=== PATIENT | male | born 1960 | race Caucasian/White ===

== ENCOUNTER 2016-04-19 10:53 | Inpatient (IN) | payer BC ==
[~2016-04-19] VITALS: Ht 177.8 cm; Wt 127.3 kg
--- NOTE | ~2016-04-19 | HEMODYNAMI ---
PATIENT:KEN BARRERA MEDICAL RECORD: [id number] : 64 [id number] ADMISSION DATE: 04/19/16 Generatedon:04/20/201612:17 Patient name: KEN BARRERA Patient #: [id number] SSN: D OB: 1960 Date of study: 04/20/2016 Page: Of Hemodynamic Procedure Report Patient Data Patient Demographics Procedure consent was obtained First Name: KEN Gender: Male Last Name: BRUCE : 1960 Middle Initial: W Age: 55 year(s) Patient #: [id number] Race: Additional ID: [id number] Contact details [address]: [address] [place] [address] State: [place] City: [place] Zip code: [address] Past Medical History Performed procedures and imaging results Date Procedure Procedure Results Comments 04/20/2016 No ACC stress or imaging studies were performed Allergies: No known allergies Admission Admission Data Admission Date: 04/19/2016 Admission Time: 10:53 Admit Source: Other Insurance Payor: Private Room #: D.2119 health insurance Height (in.): 70 BSA: 2.41 (m2) Height (cm.): 177.8 BMI: 40.18 (kg/m2) Weight (lbs.): 280 Weight (kg.): 127.01 Lab Results Lab Result Date: 04/20/2016 Lab Result Time: 0:00 Biochemistry Name Units Result Min Max Creatinine mg/dl 0.9 --(-*--)-- 0.6 1.3 CBC Name Units Result Min Max Hemoglobin g/dl 16.2 --(--*-)-- 13.5 17.5 Procedure Procedure Types Cath Procedure Diagnostic Procedure [facility] w/Coronaries Procedure Description Procedure Date Procedure Date: 04/20/2016 Procedure Start Time: 12:08 Procedure End Time: 12:16 Procedure Staff Name Function Delta Souza MD Performing Physician Pete Castrejon RN Nurse Ruth Counts RT Monitor Edgard Soares RT Batch Room Technician Lobito White RT Scrub Procedure Data Cath Procedure Fluoroscopy Diagnostic fluoroscopy Total fluoroscopy Time: 0.8 time: 0.8 min min Diagnostic fluoroscopy Total fluoroscopy dose: 451 dose: 451 mGy mGy Contrast Material Contrast Material Type Amount (ml) Isovue 300 58 Entry Location Entry Primary Successful Side Size Upsize Upsize Entry Closure Succes sful Closure Location (Fr) 1 (Fr) 2 (Fr) Remarks Device Remarks Femoral Right 5 Fr Vascade artery Closure System Estimated blood loss: 5 ml Diagnostic catheters Device Type Used For End Catheter Placement Cordis 5Fr Pigtail LV Angiography Catheter (MP) Cordis 5Fr JL 4.0 Left Coronary Catheter (MP) Angiography Cordis 5Fr 3DRC Catheter Right Coronary (MP) Angiography Procedure Complications No complications Procedure Medications Medication Administration Route Dosage Oxygen NC 2 l/min Heparin Drip I.V. drip (80986jblcb/250 D5W) Lidocaine 2% added to field 20 Heparin Flush Bag added to field 2 bags (1000units/500ml NS) 0.9% NaCl I.V. 100 ml/hr Versed I.V. 1 mg Fentanyl I.V. 50 mcg Versed I.V. 1 mg Fentanyl I.V. 50 mcg Hemodynamics Rest BSA: 2.41 (m2) HGB: 16.2 (g/dl) O2 Consumption: Estimated: 295.01 (ml/min) O2 Co nsumption indexed: Estimated:122.41 (ml/min/m) Heart Rate: 79 (bpm) Snapshots Pre Cath Intra NCS Post Cath Vital Signs Time Heart Resp SPO2 NIBP (mmHg) Rhythm Pain Sedation Rate (ipm) (%) Status Level (bpm) 11:57:59 79 21 98 126/98(115) NSR 0 (11) 10(A) , No pain 12:02:09 80 17 98 114/83(101) NSR 0 (11) 10(A) , No pain 12:06:15 82 17 94 126/82(110) NSR 0 (11) 10(A) , No pain 12:10:23 77 16 97 129/86(102) NSR 0 (11) 9(A) , No pain 12:14:33 70 20 96 118/92(106) NSR 0 (11) 9(A) , No pain 12:15:51 73 19 95 126/87(109) NSR 0 (11) 10(A) , No pain Medications Time Medication Route Dose Verified Delivered Reason Notes Eff ectiveness by by 11:55:13 Oxygen NC 2 Delta Buffie used for l/min Libby Castrejon RN procedure 11:58:32 Heparin Drip I.V. turned Deltahorace Laureanoie Per (92808didfw/250 drip off at Libby Castrejon RN physician D5W) 1148 11:58:43 Lidocaine 2% added 20ml Delta Delta for local to vial Libby Souza MD anesthetic field 11:58:48 Heparin Flush added 2 bags Delta Delta used for Bag to Libby Souza MD procedure (1000units/500ml field NS) 11:58:56 0.9% NaCl I.V. 100 Delta Buffie Per ml/hr Libby Castrejon RN physician 12:07:38 Versed I.V. 1 mg Delta Laureanoie for Libby Castrejon RN sedation 12:07:43 Fentanyl I.V. 50 mcg Delta Freeman for Libby Castrejon RN sedation 12:10:33 Versed I.V. 1 mg Delta Buffie for Libby Castrejon RN sedation 12:10:36 Fentanyl I.V. 50 mcg Delta Freeman for Libby Castrejon RN sedation Procedure Log Time Note 11:40:26 Edgard Soares RT(R) sent for patient. Start room use. 11:40:27 Time tracking: Regular hours 11:40:31 Plan of Care:Hemodynamics will remain stable., Cardiac rhythm will remain stable., Comfort level will be maintained., Respiratory function will remain adequate., Patient/ family verbilizes understanding of procedure., Procedure tolerated without complication., Recovers from procedure without complications.. 11:41:31 ACC Patient presents with Stable Angina CCS Anginal Class 2--Slight limitation of ordinary activity. 11:42:38 Admit Source: Other 11:42:41 Insurance Payor : Private health insurance 11:45:25 Patient allergic to No known allergies 11:46:17 Lab Result : Hemoglobin 16.2 g/dl 11:46:17 Lab Result : Creatinine 0.9 mg/dl 11:46:32 Diagnostic Cath Status : Elective 11:49:10 Patient received from PCU to CCL 1 Alert and oriented. Tansferred to table in Supine position. 11:49:11 Warm blankets applied, and sunil hugger turned on for patient comfort. 11:49:12 Correct patient and procedure confirmed by team. 11:49:13 Signed procedure consent form obtained from patient. 11:49:14 ECG and BP/O2 sat monitors applied to patient. 11:49:14 Full Disclosure recording started 11:52:01 Use device set Femoral Dx 11:52:02 Acist Syringe opened to sterile field. 11:52:03 Bag Decanter opened to sterile field. 11:52:03 Cardinal Cath Pack opened to sterile field. 11:52:04 Terumo 5Fr [place] Sheath opened to sterile field. 11:52:04 St Maycol 260cm J .035 wire opened to sterile field. 11:52:05 Acist Hand Control opened to sterile field. 11:52:06 Acist Manifold opened to sterile field. 11:52:06 Cordis Infinity 5Fr Multipack catheter opened to sterile field. 11:52:07 Tegaderm 4 x 4 opened to sterile field. 11:52:07 IV Extension Set opened to sterile field. 11:52:29 H&P Date Dictated: 04/19/2016 Within 30 days and on chart.. 11:52:30 Pre-procedure instructions explained to patient. 11:52:30 Pre-op teaching completed and patient verbalized understanding. 11:52:31 Family in waiting room. 11:52:34 Patient NPO since Midnight. 11:52:37 Is the patient allergic to Iodine/contrast media? No. 11:52:40 Is patient on blood thinner?No 11:52:41 Patient diabetic? No. 11:52:48 Previous problem with sedation/anesthesia? No ? 11:52:50 Snore? No 11:52:51 Sleep apnea? No 11:52:52 Deviated septum? No 11:52:52 Opens mouth fully? Yes 11:52:53 Sticks out tongue? Yes 11:52:55 Airway obstruction? No ? 11:52:57 Dentures? No ? 11:52:59 Pre procedure: right dorsailis pedis pulse 2+ Normal; easily identifiable; not easily obliterated 11:53:03 Patient pain scale 0/10 ?. 11:53:11 IV patent on arrival in left forearm with 0.9% NaCl at [facility]. 11:55:13 Oxygen 2 l/min NC was given by Pete Castrejon RN; used for procedure; 11:56:50 Lab results completed and on chart. 11:56:55 Right groin area was prepped with chlora-prep and draped in sterile fashion 11:56:59 Vital chart was started 11:57:11 Rhythm: atrial fibrillation 11:57:18 Alarms reviewed by R. N. 11:57:18 Sharps counted by scrub and verified by R.N. 11:58:32 Heparin Drip (75375mjyfe/250 D5W) turned off at 1148 I.V. drip was given by Pete Castrejon RN; Per physician; 11:58:43 Lidocaine 2% 20ml vial added to field was given by Delta Souza MD; for local anesthetic; 11:58:45 Baseline sample Acquired. 11:58:48 Heparin Flush Bag (1000units/500ml NS) 2 bags added to field was given by Delta Souza MD; used for procedure; 11:58:56 0.9% NaCl 100 ml/hr I.V. was given by Pete Castrejon RN; Per physician; 11:59:37 Patient Height : 177.8 cm 11:59:41 Patient Weight : 127.01 kg 12:00:24 Physician paged 12:03:44 Zero performed for pressure channel P1 12:06:33 Final Timeout: patient, procedure, and site verified with staff and physician. All members of the team are in agreement. 12:06:35 Right groin site verified by team. 12:06:37 Physical assessment completed. ASA score P 2 - A patient with mild systemic disease as per Delta Souza MD. 12:06:40 Sedation plan: IV Moderate Sedation Versed, Fentanyl 12:07:38 Versed 1 mg I.V. was given by Pete Castrejon RN; for sedation; 12:07:43 Fentanyl 50 mcg I.V. was given by Pete Castrejon RN; for sedation; 12:08:26 Procedure started. 12:08:51 Local anesthetic to right femoral artery with Lidocaine 2% by Delta Souza MD.INITIAL ACCESS ONLY 12:09:20 A 5 Fr sheath was inserted into the Right Femoral artery 12:09:42 A CordTheReadingRoom 5Fr Pigtail Catheter (MP) was advanced over the wire and used for LV Angiography. 12:10:19 LV gram done using BROWN 12:10:23 EF : 30 % 12:10:33 Versed 1 mg I.V. was given by Pete Castrejon RN; for sedation; 12::36 Fentanyl 50 mcg I.V. was given by Pete Castrejon RN; for sedation; 12:10:36 Injector settings: Ml/sec: 10, Volume: 20, 12:10:39 Catheter removed. 12:10:53 A Cordis 5Fr JL 4.0 Catheter (MP) was advanced over the wire and used for Left Coronary Angiography. 12:11:28 Catheter removed. 12:11:50 A Cordis 5Fr 3DRC Catheter (MP) was advanced over the wire and used for Right Coronary Angiography. 12:12:34 Catheter removed. 12:12:44 Vascade 5Fr Closure Device opened to sterile field. 12:13:24 Sheath removed intact; hemostasis achieved with Vascade Closure System to the Right Femoral artery. 12:13:26 Procedure ended.(Physican Out) 12:14:45 Fluoroscopy time 00.80 minutes. 12:14:48 Fluoroscopy dose: 451 mGy 12:14:48 Flurop Dose total: 451 12:14:53 Contrast amount:Isovue 300 58ml. 12:14:54 Sharps counted by scrub and verified by R.N. 12:14:57 Insertion/operative site no bleeding no hematoma. 12:15:02 Post-op/insertion site Right Femoral artery dressed using a 4 x 4 and Tegaderm. 12:15:05 Post right femoral artery:stable, clean and dry 12:15:07 Post Procedure Pulses reassessed and unchanged 12:15:13 Post-procedure physical assessment completed. ASA score P 2 - A patient with mild systemic disease as per Delta Souza MD. 12:15:21 Post procedure rhythm: unchanged. 12:15:23 Estimated blood loss: 5 ml 12:15:24 Post procedure instruction explained to patient.Patient verbalizes understanding. 12:15:24 Patient needs reinforcement of post procedure teaching. 12:15:45 Procedure and supply charges have been captured, reviewed, submitted and are correct. 12:15:48 Procedure Complication : No complications 12:15:51 See physician's report for complete and final results. 12:16:19 Vital chart was stopped 12:16:22 Report given to PCU. 12:16:26 Patient transfered to PCU with Bed. 12:16:34 Procedure ended. 12:16:34 Full Disclosure recording stopped 12:16:43 End room use (Document Last) Device Usage Item Name Manufacture Quantity Catalog Number Hospital Part Current Minimal Lot# / Charge Number Stock Stock Serial# Code Acist Acist 1 78429 [id number] 231401 889362 20 Syringe Medical Systems Inc Bag Microtek 1 2002S 126436 89443 378598 5 Decanter Medical Inc. Cardinal Cardinal 1 [id number] 089923 42112 014591 5 Cath Pack Health Terumo Terumo 1 IRY755 960755 844257 340851 40 5Fr [place] Sheath [address] Maycol St Maycol 1 111138 097176 416156 033975 30 260cm J .035 wire Acist Acist 1 05349 864677 714260 808072 5 Hand Medical Control Systems Inc Acist Acist 1 86625 950046 755951 644274 5 Manifold Medical Systems Inc Cordis Cardinal 1 US2199 468774 28944 975068 30 Infinity Health 5Fr Multipack catheter Tegaderm 3M 1 1626W 318168 504094 264548 5 4 x 4 IV Hospira 1 61754-00 280239 25726 172384 5 Extension Set Cordis Cardinal 1 932166 5 5Fr Health Pigtail Catheter (MP) Cordis Cardinal 1 [id number] 5 5Fr JL Health 4.0 Catheter (MP) Cordis Cardinal 1 627873 5 5Fr [facility] Health Catheter (MP) Vascade Cardiva 1 [id number] 659995 24635 103160 10 5Fr Medical, Closure Inc. Device Signature Audit [place] Stage Time Signature Unsigned Intra-Procedure 04/20/2016 Ruth 12:17:03 PM Counts RT(R) Signatures Monitor : Ruth Signature : Counts RT Date : Time : [id number] [place] [address]
--- NOTE | 2016-04-19 11:44 | NUR ---
PT ARRIVED TO UNIT VIA WHEELCHAIR, ACCOMPANIED BY SPOUSE AND HOSPITAL STAFF. PT ORIENTED TO ROOM AND CALL LIGHT, PLACED ON 1.5L OF O2 PER DOCTOR'S ORDER. WILL DO ASSESSMENT AND START PLAN OF CARE.
[2016-04-19 11:57] LABS: APPEARANCE CLEAR (CLEAR); BILIRUBIN NEGATIVE (NEGATIVE); COLOR DK YELLOW (YELLOW); GLUCOSE NEGATIVE (NEGATIVE); KETONE NEGATIVE (NEGATIVE); LEUKOCYTE ESTERASE NEGATIVE (NEGATIVE); NITRITE NEGATIVE (NEGATIVE); PROTEIN NEGATIVE (NEGATIVE); SPECIFIC GRAVITY 1.015 (1.005-1.020); UROBILINOGEN NORMAL (NORMAL)
[2016-04-19 11:58] LABS: BASOPHILS 0.5 % (0.0-2.0); EOSINOPHILS 2.4 % (0-7); HEMATOCRIT 49.2 % (42.0-54.0); HEMOGLOBIN 16.2 g/dL (13.5-17.5); IMMATURE GRANULOCYTES 0.5 % (0-5); LYMPHOCYTES 16.8 % (15-50); MCH 28.2 pg (26.0-34.0); MCHC 32.9 g/dL (31.0-37.0); MCV 85.6 fL (80.0-100.0); MONOCYTES 9.7 % (2-11); NEUTROPHILS 70.1 % (40-80); PLATELET COUNT 241 10x3/uL (130-400); RBC 5.75 10x6/uL (4.20-6.10); RDW 13.2 % (11.5-14.5); WBC 10.9 10x3/uL (4.8-10.8)
[2016-04-19 12:28] LABS: ALKALINE PHOSPHATASE 103 U/L (46-116); ALT (SGPT) 52 U/L (10-68); BILIRUBIN - TOTAL 0.72 mg/dL (0.2-1.3); CALC OSMOLALITY 281 mosm/kg (275-300); CALCIUM 10.2 mg/dL (8.5-10.1); CARBON DIOXIDE 30.1 mmol/L (21.0-32.0); CHLORIDE - SERUM 103 mmol/L (98-107); CREATININE - SERUM 0.9 mg/dL (0.6-1.3); GLUCOSE 105 mg/dL (74-106); POTASSIUM - SERUM 5.1 mmol/L (3.5-5.1); PROTEIN - SERUM 7.9 g/dL (6.4-8.2); SODIUM 141 mmol/L (136-145); T4 THYROXINE 8.2 ug/dL (4.7-13.3); THYROID STIMULATING HORMONE 4.08 uIU/mL (0.36-3.74); UREA NITROGEN 16 mg/dL (7-18); eGFR NON AFRICAN AMERICAN > 90 mL/min (90-120)
[2016-04-19 13:26] VITALS: BP 167/114; Ht 177.8 cm; Wt 127.3 kg
--- NOTE | 2016-04-19 13:40 | NUR ---
22G IV TO RIGHT FOREARM AND LEFT FOREARM WITH ONE ATTEMPT EACH. COVERED WITH OPSITE. TOLERATED WELL
--- NOTE | 2016-04-19 14:06 | NUR ---
CARDIZEM DRIP STARTED TO LEFT FOREARM AT THIS TIME AT 10MG/HR. PT IN BED, DENIES ANY NEEDS AT THIS TIME. CALL LIGHT IN REACH, NAD NOTED, WILL CONTINUE TO MONITOR.
--- NOTE | 2016-04-19 14:34 | NUR ---
SCD'S ON BILATERAL LE
--- NOTE | 2016-04-19 14:35 | NUR ---
CALLED LAB AND INFORMED THEM THAT I NEED A PTT ON PT STAT. THEY STATED THAT THEY WOULD COME DRAW IT.
[2016-04-19 15:44] VITALS: BP 155/94
--- NOTE | 2016-04-19 16:21 | NUR ---
ADMINSITERED 5000 UNITS OF HEPARIN ONE TIME DOSE. AND HEPARIN DRIP STATED AT 13ML/HR. VERIFIED BY JIM MILLER RN. PT DENIES ANY NEEDS AT THIS TIME. CALL LIGHT IN REACH, NAD NOTED, WILL CONTINUE TO MONITOR.
[2016-04-19] MEDS ORDERED: FISH OIL 1,0001 CA1 PO (16:28)
[2016-04-19] MEDS ORDERED: CO Q-1030 MG PO (16:29)
[2016-04-19] MEDS ORDERED: VITAMIN C1000 MG PO (16:29)
[2016-04-19 20:33] VITALS: BP 113/73
[2016-04-20 00:32] VITALS: BP 120/66
[2016-04-20 04:42] VITALS: BP 128/76
--- NOTE | 2016-04-20 06:13 | NUR ---
PT ASSESSMENT COMPLETED AND PT LAYINGIN BED CARDIZEM INFUSING AND HR 65 BP 113/73 DR JOSE DENISE AND RECIVED ORDER TO DC CARDIZEM DRIP DRIP [place] [address] UNITIS/HR AT THIS TIME UNTIL PTT REDRAWN WILL MONITOR PT
--- NOTE | 2016-04-20 06:14 | NUR ---
PT REVIEWED AND HEPRIN DRIP ASSESSED BOLUS 3000UNITS AND INCREASE DRIP BY 3000 UNITS PER HEPRIN PROTOCOL.
[2016-04-20 06:57] LABS: BASOPHILS 0.5 % (0.0-2.0); EOSINOPHILS 2.2 % (0-7); HEMATOCRIT 46.6 % (42.0-54.0); HEMOGLOBIN 14.9 g/dL (13.5-17.5); IMMATURE GRANULOCYTES 0.4 % (0-5); LYMPHOCYTES 22.2 % (15-50); MCH 27.9 pg (26.0-34.0); MCV 87.1 fL (80.0-100.0); MEAN PLATELET VOLUME 10.1 fL (7.4-10.4); MONOCYTES 8.3 % (2-11); NEUTROPHILS 66.4 % (40-80); PLATELET COUNT 222 10x3/uL (130-400); RBC 5.35 10x6/uL (4.20-6.10); RDW 13.4 % (11.5-14.5); WBC 11.4 10x3/uL (4.8-10.8)
[2016-04-20 07:21] LABS: ANION GAP 8.3 mmol/L (8-16); CALCIUM 8.9 mg/dL (8.5-10.1); CARBON DIOXIDE 30.8 mmol/L (21.0-32.0); POTASSIUM - SERUM 5.1 mmol/L (3.5-5.1)
[2016-04-20 07:22] LABS: CREATININE - SERUM 1.2 mg/dL (0.6-1.3)
[2016-04-20 08:00] VITALS: BP 111/76
--- NOTE | 2016-04-20 09:01 | NUR ---
CONSENTS SIGNED FOR [facility]. HEPRIN GTT INFUSING. AT BS. WILL CONT. PLAN OF CARE.
--- NOTE | 2016-04-20 11:50 | NUR ---
PRE-OPS GIVEN. TO FISH CONSERVATIONIST BY BED.
[2016-04-20 12:00] VITALS: BP 115/76
--- NOTE | 2016-04-20 12:33 | NUR ---
BACK FROM [facility]. VS WNL. RIGHT GROIN STABLE WITHOUT BLEEDING OR HEMATOMA NOTED. WILL MONITOR.
[2016-04-20] MEDS ORDERED: BETAPACE 120 M120 MG PO (14:08)
[2016-04-20] MEDS ORDERED: XARELTO20 MG PO (14:09)
[2016-04-20] MEDS ORDERED: LISINOPRIL5 MG PO (14:10)
--- NOTE | 2016-04-20 14:37 | NUR ---
BED REST UP. GROIN STABLE. IV AND TELEMETRY DCD FOR DC.
--- NOTE | 2016-04-20 14:45 | NUR ---
Patient Name: KEN BARRERA Admission Status: Elective Accout number: [id number] Admission Date: 04-19-2016 : 1960 Admission Diagnosis:ESSENTIAL (PRIMARY) HYPERTENSION Attending: MANUELA Current LOS: 1 Anticipated DC Date: 04-20-2016 Planned Disposition: Home Primary Insurance: BLUE CROSS OUT OF STATE Discharge Planning Comments: * Is the patient Alert and Oriented? Yes 0 * How many steps to enter\exit or inside your home? 6 0 * PCP DR. VERDE 0 * Pharmacy [facility] 0 * Preadmission Environment Home with Family 0 * ADLs Independent 0 * Equipment None 0 * Other Equipment NO MEDICAL EQUIPMENT PROVIDER PREFERENCE 0 * List name and contact numbers for known caregivers / representatives who currently or will assist patient after discharge: SHADY BARRERA, SPOUSE, 0 * Community resources currently utilized None 0 * Please name any agencies selected above. NONE 0 * Additional services required to return to the preadmission environment? No 0 * Can the patient safely return to the preadmission environment? Yes 0 * Has this patient been hospitalized within the prior 30 days at any hospital? No 0 CM MET WITH PT AND SPOUSE IN ROOM TO DISCUSS DISCHARGE PLANNING AND NEEDS. PT REPORTS LIVING WITH SPOUSE. PT HAS NO MEDICAL EQUIPMENT AND NO OUTSIDE SERVICES ASSISTING IN THE HOME. CM DISCUSSED AVAILABILITY OF HOME HEALTH, REHAB SERVICES AND MEDICAL EQUIPMENT. PT DENIES DISCHARGE NEEDS, REPORTS HIS SPOUSE WILL TRASPORT HIM HOME AT DISCHARGE. [employer] Representatives: Harlan Ma
--- NOTE | 2016-04-20 15:35 | NUR ---
IV AND TELEMETRY DCD. DC PLANS GIVEN. UNDERSTANDING VOICED. ESCORTED TO CAR BY W/C.
--- NOTE | 2016-04-21 16:23 | CN ---
PATIENT NAME:KEN BARRERA MEDICAL RECORD: [id number] : 64 LOCATION:D. D.2119 ADMIT DATE: 04/19/16 ACCOUNT: [id number] CONSULTING PHYSICIAN: TE GARCIA MD REFERRING PHYSICIAN: JAZMIN VERDE MD DATE OF CONSULTATION: 04/19/2016 Cardiology Consultation DIAGNOSES: 1. Atrial fibrillation. 2. Chest pain compatible with angina. 3. Shortness of breath, dyspnea on exertion. 4. Family history of coronary artery disease. 5. Hyperlipidemia. HISTORY OF PRESENT ILLNESS: This is a gentleman who presents with shortness of breath and some chest discomfort, found to be in atrial fibrillation with rapid ventricular response, was given IV Cardizem as well as p.o. sotalol. He is now still in atrial fibrillation. Heart rate in 60s. He is not having any further chest pain or chest discomfort, shortness of breath has improved. He does not have a cardiac history ____ family history of coronary artery disease. His troponin is normal. PHYSICAL EXAMINATION: GENERAL APPEARANCE: Well-nourished, well-developed, appears stated age. Level of distress, comfortable. PSYCHIATRIC: Mental status, alert, normal affect. Orientation, oriented to time, place and person. EYES: Lids and conjunctiva, noninjected. No discharge, no pallor. ENT: Lips, teeth, gums, normal dentition. Oropharynx, no cyanosis, no pallor. NECK: Carotid arteries, bilateral normal upstroke, no bruits, no thrills. JUGULAR VEINS: No jugular venous pressure or distention. CERVICAL LYMPH NODES: Nontender, nonenlarged. THYROID: Not enlarged. Nontender. No nodules. LUNGS: Respiratory effort, unlabored. CHEST: Normal curvature. No thoracic deformity. No chest wall tenderness. Percussion, resonant. Auscultation, clear. No wheezes, no rales, no rhonchi. CARDIOVASCULAR: Precordial exam, nondisplaced. No heaves or pericardial thrills. Rate and rhythm, regular. Heart sounds, normal S1, normal S2. No S3, no gallop, no rub. Systolic murmur, not heard. Diastolic murmur, not heard. EXTREMITIES: No cyanosis, no edema. Peripheral pulses, full and equal in all extremities, except as noted. No bruits appreciated. ABDOMEN: Soft, nondistended. Normal aorta. No bruit. Nontender. No masses. Liver, nontender, no hepatomegaly. Spleen, nontender, no splenomegaly. MUSCULOSKELETAL: No joint tenderness. No joint swelling. No erythema. NEUROLOGICAL: Normal gait, normal strength, normal tone. SKIN: Warm and dry. REVIEW OF SYSTEMS: The patient reports easy bruising but reports no swollen glands. The patient reports no fever, no night sweats, no significant weight gain, no significant weight loss. No significant exercise tolerance. The patient reports no dry eyes, no irritation, no vision change. Patient reports no difficulty hearing and no ear pain. Patient reports no frequent nose bleeds or nose and sinus problems. Patient reports on arm pain on exertion. No CONSULT REPORT [id number] KEN BARRERA shortness of breath while lying down. No history of heart murmur. Patient reports no cough, no wheezing or coughing up blood. Patient reports no abdominal pain, no vomiting. Normal appetite. No diarrhea and not vomiting blood. No nausea and no constipation. Patient reports no incontinence. No difficulty urinating. No hematuria. No increased frequency. Patient reports no muscle aches. No weakness, no arthralgias, no back pain. No swelling of the extremities. Patient reports no abnormal mole, no jaundice, no rashes. Reports no loss of consciousness. No weakness and no numbness. No seizures, dizziness, or headaches. The patient reports no depression, no sleep disturbance, feeling safe in a relationship and no alcohol abuse. Patient reports on fatigue. Reports no runny nose or sinus pressure. No itching, no hives, and no frequent sneezing. OVERALL IMPRESSION: Atrial fibrillation with rapid ventricular response with chest pain and shortness of breath. He has a high likelihood of ischemia as etiology of this. We will proceed with coronary angiography in the a.m. Continue the sotalol after coronary angiography. We will start antithrombin therapy for the atrial fibrillation, do this for at least 3 weeks as we do not know the duration of the atrial fibrillation then proceed with DC cardioversion. TRANSINT:[id number] Voice Confirmation ID: [id number] DOCUMENT ID: [id number] TE GARCIA MD at 1623 CC: [id number] DICTATION DATE: 04/19/16 7373 MILITARY TECHNOLOGY SPECIALIST: 04/19/16 2346 DIS IN 04/20/16 [facility] [address] [place] [address]
--- NOTE | 2016-04-21 16:23 | OP ---
PATIENT NAME: KEN BARRERA MEDICAL RECORD: [id number] :64 LOCATION:D.M2 D.2119 ADMISSION DATE:04/19/16 SURGEON: TE GARCIA MD DATE OF OPERATION: 04/20/2016 PROCEDURES: 1. Left heart catheterization. 2. Selective coronary angiography. 3. Left ventriculogram. INDICATION: Cardiomyopathy, shortness of breath, dyspnea on exertion, atrial fibrillation. DESCRIPTION OF PROCEDURE: After informed consent was obtained and after a detailed explanation of the risks, benefits as well as alternative therapies, the patient elected to proceed with angiogram and heart catheterization. The right femoral area was prepped and draped in normal sterile fashion. The right femoral artery was cannulated via modified Seldinger technique with placement of 5-Arabic sheath. All catheters were exchanged through this sheath. FINDINGS: Left ventriculogram was performed in the standard 30-degree BROWN view, reveals global hypokinesis, ejection fraction is 30%. SELECTIVE CORONARY ANGIOGRAPHY: Left main, left ____ descending, left circumflex, right coronary are smooth-walled vessels with no angiographic evidence of coronary artery disease. OVERALL IMPRESSION: 1. No significant coronary disease. 2. Cardiomyopathy, nonischemic, ejection fraction 30%. Center medical management and treatment of cardiomyopathy and dysrhythmia. TRANSINT:[id number] Voice Confirmation ID: [id number] DOCUMENT ID: [id number] TE GARCIA MD at 1623 CC: JAZMIN VERDE MD [id number] DICTATION DATE: 04/20/16 1220 STORE WAREHOUSE ASSOCIATE: 04/20/166 DIS IN 04/20/16 [place] [address] [place] [id number]
--- NOTE | 2016-04-21 16:23 | DS ---
PATIENT:KEN BARRERA :[birth year] MEDICAL RECORD: [id number] DISCHARGE SUMMARY ADMISSION DATE: 04/19/16 DISCHARGE DATE: 04/20/16 DISCHARGE DIAGNOSES: 1. Cardiomyopathy, nonischemic. 2. Atrial fibrillation. 3. Shortness of breath, dyspnea on exertion. HOSPITAL COURSE: Mr. Barrera presents with shortness of breath, dyspnea on exertion, found to be in atrial fibrillation with rapid ventricular response of an unknown duration, underwent cardiac catheterization revealing no coronary artery disease but cardiomyopathy, ejection fraction 30%. He was started on sotalol 120 mg b.i.d. along with lisinopril 5 mg b.i.d. along with Xarelto 20 mg every day. We will follow up with [facility] in 1 month. TRANSINT:[id number] Voice Confirmation ID: [id number] DOCUMENT ID: [id number] TE GARCIA MD at 1623 CC: [id number] DICTATION DATE: 04/20/16 1218 ENTRY LEVEL ACCOUNTING CLERK: 04/20/16 2348 DIS IN 04/20/16 [facility] [address] [place] [address]
--- NOTE | 2016-05-16 06:10 | HP ---
PATIENT: KEN BARRERA MEDICAL RECORD: [id number] ACCOUNT: [id number] LOCATION:[address] : 64 ADMISSION DATE: 04/19/16 HISTORY AND PHYSICAL EXAMINATION REASON FOR ADMISSION: Shortness of breath and fatigue with peripheral edema. HISTORY OF PRESENT ILLNESS: The patient is a 55-year-old male who has had history of hypertension, untreated for some time. He states he has just not felt well recently and had checked his blood pressure at [facility] several times, it was in 180/100 to 110 range. He did not notice his heart rate. He came to the office today with these complaints. He denies headaches, exertional chest pain. Also, has intermittent painful periumbilical hernia. In the office, he is noted to be in uncontrolled atrial fibrillation, significant peripheral edema. For that reason, he is now being admitted for control of his heart rate and cardiology consultation. He denies any history of hyperthyroidism. PAST MEDICAL HISTORY: Essential hypertension, untreated obesity. PAST SURGICAL HISTORY: Appendectomy as a child. FAMILY HISTORY: Parents with hypertension. SOCIAL HISTORY: He is nonsmoker, nondrinker. He is and works for [employer] in maintenance. MEDICATIONS: None currently. REVIEW OF SYSTEMS: GENERAL: He has been fatigued, had gradual weight gain. No fever. HEENT: No recent visual change, sinus congestion. Does have some high frequency hearing loss. RESPIRATORY: Shortness of breath on exertion. No cough or sputum production. CARDIAC: No exertional chest pain, claudication. GASTROINTESTINAL: He has had edema in his ankles and feet and lower legs for the last several weeks. GENITOURINARY: Nocturia times 1 at night. No dysuria. ENDOCRINE: Denies polyuria, polydipsia, heat or cold intolerance. NEUROLOGIC: No history of stroke, TIA, or vascular headaches. INTEGUMENT: No rash or itching. PSYCHIATRIC: Denies depress mood. PHYSICAL EXAMINATION: VITAL SIGNS: Blood pressure is 184/110 with a heart rate of 120 to 130, irregular, respirations are 18. Weight 284 pounds and 8 ounces, height is 5 feet 10 inches, BMI of 40.8. GENERAL: Alert, in no acute distress. HEENT: Eyes are clear. Nose unremarkable. NECK: No bruits or masses. CHEST: Fine crackles in the bases. No wheeze. HEART: Irregularly irregular without gallop or murmur. ABDOMEN: Obese, soft, nontender. PELVIC: Deferred. EXTREMITIES: He has 2+ mild pedal and pretibial edema to the mid calf bilaterally. He has some tenderness behind the left posterior calf. [facility] HISTORY AND PHYSICAL [id number] BRUCEKEN W sign is negative. LABORATORY DATA: EKG shows atrial fib with uncontrolled ventricular response. Chest x-ray showed borderline heart size. No gross pulmonary edema. Lab is currently pending. ASSESSMENT: Relatively new onset atrial fibrillation, symptomatic with mild peripheral edema; uncontrolled ventricular response; essential hypertension, uncontrolled; obesity; periumbilical hernia. PLAN: The patient will be admitted to the hospital for anticoagulation, IV Cardizem, echocardiogram and cardiology consult. TRANSINT:[id number] Voice Confirmation ID: [id number] DOCUMENT ID: [id number] JAZMIN VERDE MD at 0610 CC: [id number] DICTATION DATE: 04/19/16 1259 CARD SCRAPER: 04/19/16 1327 DIS IN 04/20/16 [facility] [address] [place] [address]
== END 2016-04-20 15:36 | disposition home or self-care (01) | DRG 287 ==
LOC: D.M2 10:53
PROVIDERS: Internal Medicine Interventional Cardiology; ADMIT Family Medicine
PROC: B2151ZZ Fluoroscopy of Left Heart using Low Osmolar Contrast (ICD-10-PCS; 2016-04-20)
PROC: 4A023N7 Measurement of Cardiac Sampling and Pressure, Left Heart, Percutaneous Approach (ICD-10-PCS; 2016-04-20)
PROC: B2111ZZ Fluoroscopy of Multiple Coronary Arteries using Low Osmolar Contrast (ICD-10-PCS; principal; 2016-04-20 07:30)
DX: I48.91 Unspecified atrial fibrillation (principal); Z68.41 Body mass index [BMI] 40.0-44.9, adult; I10 Essential (primary) hypertension; E66.9 Obesity, unspecified; K42.9 Umbilical hernia without obstruction or gangrene; E78.5 Hyperlipidemia, unspecified; I42.9 Cardiomyopathy, unspecified

== ENCOUNTER 2016-06-03 08:58 | Outpatient (CLI) | payer BC ==
[~2016-06-03] VITALS: Ht 177.8 cm; Wt 128.2 kg
--- NOTE | ~2016-06-03 | HEMODYNAMI ---
PATIENT:KEN BARRERA MEDICAL RECORD: [id number] : 64 LOCATION:[facility] ADMISSION DATE: 06/03/16 Generatedon:06/03/201613:50 Patient name: KEN BARRERA Patient #: [id number] SSN: D OB: 1960 Date of study: 06/03/2016 Page: Of Hemodynamic Procedure Report Patient Data Patient Demographics Procedure consent was obtained First Name: KEN Gender: Male Last Name: BRUCE : 1960 Middle Initial: W Age: 56 year(s) Patient #: [id number] Race: Additional ID: [id number] Contact details Address: [address] [place] [address] State: [place] City: [place] Zip code: [address] Past Medical History Allergies: No known allergies Admission Admission Data Admission Date: 06/03/2016 Admission Time: 8:58 Lab Results Lab Result Date: 06/03/2016 Lab Result Time: 0:00 CBC Name Units Result Min Max Hemoglobin g/dl 13.4 -*(----)-- 13.5 17.5 Coagulation Name Units Result Min Max INR units 2.2 --(----)-* 0.85 1.17 PT sec 24.5 --(----)-* 11.6 15 Procedure Procedure Types Cath Procedure Diagnostic Procedure Cardioversion Procedure Description Procedure Date Procedure Date: 06/03/2016 Procedure Start Time: 13:42 Procedure End Time: 13:45 Procedure Staff Name Function Delta Souza MD Performing Physician Lionel Granados MD Additional personnel Pete Castrejon RN Nurse Edgard Soares RT Rotary Envelope Machine Operator Lobito White RT Monitor Ruth Irvin RT Rotary Envelope Machine Operator Denise Crawley RT Rotary Envelope Machine Operator Procedure Data Cath Procedure Fluoroscopy Diagnostic fluoroscopy Total fluoroscopy Time: 0 time: 0 min min Diagnostic fluoroscopy Total fluoroscopy dose: 0 dose: 0 mGy mGy Procedure Complications No complications Procedure Medications Medication Administration Route Dosage Oxygen NC 2 l/min Refer to Anesthesia Notes for Sedation Medications Hemodynamics Rest HGB: 13.4 (g/dl) Heart Rate: 77 (bpm) Snapshots Pre Cath Intra NCS Post Cath Vital Signs Time Heart Resp SPO2 etCO2 [id number] Respiration NIBP (mmHg) Rhythm Lolita n Sedation Rate (ipm) (%) (mmHg) (mmHg) (CO2) (ipm) Status Karla l (bpm) 13:32:08 78 22 97 38 6.7 13 168/115(139) NSR 0 ( 11) 10(A) , No pain 13:36:20 87 24 98 32 7.4 25 148/103(115) NSR 0 ( 11) 10(A) , No pain 13:40:32 88 21 94 34.3 2.9 22 155/95(114) NSR 0 ( 11) 8(A) , No pain 13:44:46 66 24 96 10.4 1.4 15 150/104(112) NSR 0 ( 11) 10(A) , No pain Medications Time Medication Route Dose Verified Delivered Reason Notes Effectiven ess by by 13:35:11 Oxygen NC 2 Delta Freeman used for l/min Libby Castrejon cytology technologist 13:35:15 Refer to Delta Freeman Anesthesia Libby Castrejon RN Notes for Sedation Medications Procedure Log Time Note 13:05:26 Edgard Soares RT(R) sent for patient. Start room use. 13:17:21 ACC Patient presents with Non-STEMI CCS Anginal Class 2--Slight limitation of ordinary activity. 13:17:24 Diagnostic Cath status Elective 13:17:33 Time tracking: Regular hours 13:17:38 Plan of Care:Hemodynamics will remain stable., Cardiac rhythm will remain stable., Comfort level will be maintained., Respiratory function will remain adequate., Patient/ family verbilizes understanding of procedure., Procedure tolerated without complication., Recovers from procedure without complications.. 13:22:06 Zero performed for pressure channel P1 13:30:51 Patient received from Pre/Post Procedure Room to CCL 1 Alert and oriented. Tansferred to table in Supine position. 13:30:52 Warm blankets applied, and sunil hugger turned on for patient comfort. 13:30:53 Correct patient and procedure confirmed by team. 13:30:54 Signed procedure consent form obtained from patient. 13:30:55 ECG and BP/O2 sat monitors applied to patient. 13:30:55 Vital chart was started 13:30:56 Baseline sample Acquired. 13:30:58 Rhythm: sinus rhythm 13:31:00 Full Disclosure recording started 13:31:11 H&P Date Dictated: 05/25/2016 Within 30 days and on chart., H&P Addendum completed by physician on day of procedure. (MUST COMPLETE FOR ALL OUTPATIENTS). 13:31:12 Pre-procedure instructions explained to patient. 13:31:13 Pre-op teaching completed and patient verbalized understanding. 13:31:14 Family in waiting room. 13:31:15 Patient NPO since Midnight. 13:31:22 Patient allergic to No known allergies 13:31:24 Is the patient allergic to Iodine/contrast media? No. 13:31:29 Is patient on blood thinner?Yes 13:31:34 ACC The patient was administered the following blood thiners within the last 24 hours: Xarelto 13:31:37 Patient diabetic? No. 13:31:39 ----Pre-sedation anethsthesia assessment.---- 13:31:41 Previous problem with sedation/anesthesia? No ? 13:31:42 Snore? Yes 13:31:43 Sleep apnea? No 13:31:44 Deviated septum? No 13:31:46 Opens mouth fully? Yes 13:31:47 Sticks out tongue? Yes 13:31:49 Airway obstruction? No ? 13:31:53 Dentures? No ? 13:32:01 Patient pain scale 0/10 ?. 13:32:04 IV patent on arrival in right hand with 0.9% NaCl at 10ml/hr. 13:33:34 Lab Result : Hemoglobin 13.4 g/dl 13:33:34 Lab Result : PT 24.5 sec 13:33:34 Lab Result : INR 2.2 units 13:33:38 Lab results completed and on chart. 13:33:43 Alarms reviewed by R. N. 13:33:43 Sharps counted by scrub and verified by R.N. 13:35:11 Oxygen 2 l/min NC was given by Pete Castrejon RN; used for procedure; 13:35:15 Refer to Anesthesia Notes for Sedation Medications was given by Pete Castrejon RN; ; 13:35:59 Physician paged 13:36:23 Quick Combo opened to sterile field. 13:41:49 --------ALL STOP TIME OUT------ 13:41:49 Final Timeout: patient, procedure, and site verified with staff and physician. All members of the team are in agreement. 13:41:52 Mid Chest site verified by team. 13:42:07 Physical assessment completed. ASA score P 2 - A patient with mild systemic disease as per Delta Souza MD. 13:42:11 Sedation plan: TIVA Propofol 13:42:17 Procedure started. 13:42:35 ------Cardioversion------ 13:42:36 Quick combo pads placed on patients chest and back. 13:42:47 Defibrillator synced and charged to 300 Joules. 13:44:02 Shock delivered. 13:44:15 Patient cardioverted to sinus rhythm . 13:44:18 Procedure ended.(Physican Out) 13:44:27 Fluoroscopy time 00.00 minutes. 13:44:32 Fluoroscopy dose: 0 mGy 13:44:32 Flurop Dose total: 0 13:44:58 Sharps counted by scrub and verified by R.N. 13:44:59 Insertion/operative site no bleeding no hematoma. 13:45:06 Post Procedure Pulses reassessed and unchanged 13:45:11 Post procedure rhythm: sinus rhythm 13:45:15 Post procedure instruction explained to patient.Patient verbalizes understanding. 13:45:42 Procedure and supply charges have been captured, reviewed, submitted and are correct. 13:45:47 Procedure Complication : No complications 13:45:49 Vital chart was stopped 13:45:50 See physician's report for complete and final results. 13:45:52 Report given to Pre/Post Procedure Room. 13:45:57 Patient transfered to Pre/Post Procedure Room with Stretcher. 13:45:59 Procedure ended. 13:45:59 Full Disclosure recording stopped 13:46:02 End room use (Document Last) Device Usage Item Manufacture Quantity Catalog Hospital Part Current Minimal Lot# / Name Number Charge Number Stock Stock Lea verma# Code [employer] 1 [id number] Combo Signature Audit [place] Stage Time Signature Unsigned Intra-Procedure 06/03/2016 Lobito White 1:50:02 PM RT(R) Signatures Monitor : Lobito White RT Signature : Date : Time : [address] [address]
[~2016-06-03 08:58] MED LIST: BETAPACE 120 M120 MG PO; CO Q-1030 MG PO; FISH OIL 1,0001 CA1 PO; LISINOPRIL5 MG PO; VITAMIN C1000 MG PO; XARELTO20 MG PO
[2016-06-03] MEDS ORDERED: DYAZIDE 37.5/251 CAP PO (10:08)
[2016-06-03 10:12] VITALS: BP 125/86; Ht 177.8 cm; Wt 128.2 kg
[2016-06-03 11:09] LABS: BASOPHILS 0.3 % (0.0-2.0); EOSINOPHILS 3.3 % (0-7); HEMATOCRIT 49.3 % (42.0-54.0); HEMOGLOBIN 16.2 g/dL (13.5-17.5); IMMATURE GRANULOCYTES 0.3 % (0-5); LYMPHOCYTES 22.2 % (15-50); MCH 27.6 pg (26.0-34.0); MCHC 32.9 g/dL (31.0-37.0); MCV 83.8 fL (80.0-100.0); MEAN PLATELET VOLUME 9.9 fL (7.4-10.4); MONOCYTES 9.6 % (2-11); NEUTROPHILS 64.3 % (40-80); PLATELET COUNT 255 10x3/uL (130-400); RBC 5.88 10x6/uL (4.20-6.10); WBC 8.8 10x3/uL (4.8-10.8)
[2016-06-03 11:16] LABS: CALC OSMOLALITY 276 mosm/kg (275-300); CALCIUM 9.6 mg/dL (8.5-10.1); CARBON DIOXIDE 26.1 mmol/L (21.0-32.0); CHLORIDE - SERUM 102 mmol/L (98-107); CREATININE - SERUM 0.7 mg/dL (0.6-1.3); GLUCOSE 99 mg/dL (74-106); POTASSIUM - SERUM 5.2 mmol/L (3.5-5.1); SODIUM 138 mmol/L (136-145); UREA NITROGEN 16 mg/dL (7-18); eGFR NON AFRICAN AMERICAN > 90 mL/min (90-120)
[2016-06-03 11:41] LABS: INR 2.2 (0.85-1.17); PROTIME 24.5 SECONDS (11.6-15.0)
--- NOTE | 2016-06-03 14:58 | NUR ---
1410 AWAKE, SITTING UP AND TALKING WITH FAMILY AT BEDSIDE. NSR W PVC'S. ALL VITALS WNL. 1440 SITTING UP EATING SANDWICH WITH FAMILY AT BEDSIDE. 1450 PIV REMOVED FROM LEFT HAND WITH BANDAID APPLIED. UP TO BEDSIDE TO DRESS. D/C INSTRUCTIONS DISCUSSED WITH PATIENT AND FAMILY. DISCUSSED IMPORTANCE OF CONTINUING TO TAKE XARELTO UNTIL FOLLOW UP WITH DR. GARCIA IN ONE MONTH. WHEELED OUT VIA WHEELCHAIR BY CATH TEAM.
--- NOTE | 2016-06-10 08:46 | OP ---
PATIENT NAME: KEN BARRERA MEDICAL RECORD: [id number] :64 LOCATION:D.CAT ADMISSION DATE: SURGEON: TE GARCIA MD DATE OF OPERATION: 06/03/2016 PROCEDURE: DC cardioversion. INDICATION: Atrial fibrillation. PROCEDURE IN DETAIL: IV conscious sedation was performed per anesthesia. Continuous heart rate, O2 saturation, blood pressure monitoring were all undertaken, all of which remains stable. He received 1 shock at 300 joules restoring sinus rhythm. OVERALL IMPRESSION: Successful DC cardioversion from atrial fibrillation to sinus rhythm. TRANSINT:[id number] Voice Confirmation ID: [id number] DOCUMENT ID: [id number] TE GARCIA MD at 0846 CC: [id number] DICTATION DATE: 06/03/16 1346 HOME APPRAISER: 06/03/16 2228 DEP CLI 06/03/[address] [address]
== END 2016-06-03 15:04 | disposition home or self-care (01) ==
LOC: D.CATH 08:58
PROVIDERS: Internal Medicine Interventional Cardiology
DX: I48.0 Paroxysmal atrial fibrillation (principal); I10 Essential (primary) hypertension; I42.9 Cardiomyopathy, unspecified; I50.9 Heart failure, unspecified

== ENCOUNTER 2017-12-04 09:56 | Outpatient (CLI) | payer BC ==
[~2017-12-04] VITALS: Ht 177.8 cm; Wt 120.5 kg
--- NOTE | ~2017-12-04 | HEMODYNAMI ---
PATIENT:KEN BARRERA MEDICAL RECORD: [id number] : 64 LOCATION:[facility] ADMISSION DATE: 12/04/17 Generatedon:12/04/201713:22 Patient name: KEN BARRERA Patient #: [id number] SSN: D OB: 1960 Date of study: 12/04/2017 Page: Of Hemodynamic Procedure Report Patient Data Patient Demographics Procedure consent was obtained First Name: KEN Gender: Male Last Name: BRUCE : 1960 Middle Initial: W Age: 57 year(s) Patient #: [id number] Race: Additional ID: [id number] Contact details [address]: [address] [place] [address] State: [place] City: [place] Zip code: [address] Past Medical History Allergies: No known allergies Admission Admission Data Admission Date: 12/04/2017 Admission Time: 9:56 Procedure Procedure Types Cath Procedure Diagnostic Procedure Cardioversion External Procedure Description Procedure Date Procedure Date: 12/04/2017 Procedure Start Time: 13:06 Procedure End Time: 13:17 Procedure Staff Name Function Alexander Romero TEACHER AIDE Additional personnel Denise Crawley RT Scrub Benigno Gomez RN Nurse Rosa Scherer RT Monitor Jaxon Paulson MD Performing Physician Procedure Data Cath Procedure Fluoroscopy Diagnostic fluoroscopy Total fluoroscopy Time: 0 time: 0 min min Diagnostic fluoroscopy Total fluoroscopy dose: 0 dose: 0 mGy mGy Contrast Material Contrast Material Type Amount (ml) Isovue 300 0 Estimated blood loss: 0 ml Procedure Complications No complications Procedure Medications Medication Administration Route Dosage Oxygen etCO2 Nasal cannula 6 l/min 0.9% NaCl I.V. 100 ml/hr Refer to Anesthesia Notes for Sedation Medications Hemodynamics Rest Heart Rate: 84 (bpm) Snapshots Pre Cath Intra NCS Post Cath Vital Signs Time Heart Resp SPO2 etCO2 NIBP (mmHg) Rhythm Pain Sedation Rate (ipm) (%) (mmHg) Status Level (bpm) 12:41:58 95 16 98 0 160/122(142) NSR 0 (11) 10(A) , No pain 12:46:30 84 17 100 39.6 153/115(137) NSR 0 (11) 10(A) , No pain 12:50:59 92 16 99 38.9 150/106(143) NSR 0 (11) 10(A) , No pain 12:55:27 88 16 99 40.3 152/111(140) NSR 0 (11) 10(A) , No pain 12:59:55 78 16 100 40.3 154/122(138) NSR 0 (11) 10(A) , No pain 13:04:26 84 17 100 41.1 156/112(141) NSR 0 (11) 10(A) , No pain 13:08:56 86 17 99 41.9 152/112(139) NSR 0 (11) 10(A) , No pain 13:13:16 80 18 77 35.1 155/126(138) NSR 0 (11) 10(A) , No pain 13:14:46 72 16 89 20.9 151/106(130) NSR 0 (11) 10(A) , No pain 13:17:24 75 16 95 0 142/103(124) NSR 0 (11) 10(A) , No pain Medications Time Medication Route Dose Verified Delivered Reason Notes Effective ness by by 12:42:54 Oxygen etCO2 6 Delta Pelaez Per Nasal l/min Libby Gomez RN physician cannula 12:43:05 0.9% NaCl I.V. 100 Delta Pelaez Per ml/hr Libby Gomez RN physician 12:43:11 Refer to Delta Pelaez Per Anesthesia Libby Gomez RN physician Notes for Sedation Medications Procedure Log Time Note 12:20:21 Benigno Gomez RN sent for patient. Start room use. 12:33:27 Time tracking: Regular hours (M-F 7:00 - 5:00) 12:33:32 Plan of Care:Hemodynamics will remain stable., Cardiac rhythm will remain stable., Comfort level will be maintained., Respiratory function will remain adequate., Patient/ family verbilizes understanding of procedure., Procedure tolerated without complication., Recovers from procedure without complications.. 12:33:37 Patient received from Pre/Post Procedure Room to [facility] 3 Alert and oriented. Tansferred to table in Supine position. 12:33:38 Warm blankets applied, and sunil hugger turned on for patient comfort. 12:33:39 Correct patient and procedure confirmed by team. 12:33:42 Signed procedure consent form obtained from patient. 12:33:43 ECG and BP/O2 sat monitors applied to patient. 12:40:36 Baseline sample Acquired. 12:40:36 Vital chart was started 12:40:52 Rhythm: atrial fibrillation 12:40:54 Full Disclosure recording started 12:40:59 H&P Date Dictated: 12/04/2017 Within 30 days and on chart., H&P Addendum completed by physician on day of procedure. (MUST COMPLETE FOR ALL OUTPATIENTS). 12:41:00 Pre-procedure instructions explained to patient. 12:41:00 Pre-op teaching completed and patient verbalized understanding. 12:41:02 Family in waiting room. 12:41:03 Patient NPO since Midnight. 12:41:06 Is the patient allergic to Iodine/contrast media? No. 12:41:07 Was the patient premedicated? No 12:41:08 Is patient on blood thinner?Yes 12:41:10 ACC The patient was administered the following blood thiners within the last 24 hours: Xarelto 12:42:05 Patient diabetic? No. 12:42:07 Previous problem with sedation/anesthesia? No ? 12:42:11 Snore? Yes 12:42:12 Sleep apnea? No 12:42:12 Deviated septum? No 12:42:13 Opens mouth fully? Yes 12:42:14 Sticks out tongue? Yes 12:42:15 Airway obstruction? No ? 12:42:18 Dentures? No ? 12:42:22 Pre procedure: right dorsailis pedis pulse 1+ Palpable, but thready & weak; easily obliterated 12:42:25 Pre procedure: left dorsailis pedis pulse 1+ Palpable, but thready & weak; easily obliterated 12:42:27 Patient pain scale 0/10 ?. 12:42:33 IV patent on arrival in left forearm with 0.9% NaCl at [facility]. 12:42:37 Lab results completed and on chart. 12:42:42 Alarms reviewed by R. N. 12:42:42 Sharps counted by scrub and verified by R.N. 12:42:54 Oxygen 6 l/min etCO2 Nasal cannula was administered by Benigno Gomez RN; Per physician; 12:43:05 0.9% NaCl 100 ml/hr I.V. was administered by Benigno Gomez RN; Per physician; 12:43:11 Refer to Anesthesia Notes for Sedation Medications was administered by Benigno Gomez RN; Per physician; 12:59:33 Physician arrived 12:59:33 --------ALL STOP TIME OUT------ 12:59:34 Final Timeout: patient, procedure, and site verified with staff and physician. All members of the team are in agreement. 12:59:43 Physical assessment completed. ASA score P 2 - A patient with mild systemic disease as per Jaxon Paulson MD. 12:59:47 Sedation plan: TIVA Medication:Propofol 12:59:53 Alexander Romero CRNA present and monitoring patient for TIVA. 13:04:20 Quick combo pads placed on patients chest and back. 13:04:46 Defibrillator synced and charged to 200 Joules. 13:09:57 Procedure started. 13:11:20 Shock delivered. 13:11:29 Patient cardioverted to sinus rhythm . 13:11:36 Procedure ended.(Physican Out) 13:11:44 Fluoroscopy time 00.00 minutes. 13:11:47 Flurop Dose total: 0 13:11:47 Fluoroscopy dose: 0 mGy 13:11:51 Contrast amount:Isovue 300 0ml. 13:11:53 Sharps counted by scrub and verified by R.N. 13:11:56 Insertion/operative site no bleeding no hematoma. 13:13:18 Post Procedure Pulses reassessed and unchanged 13:13:21 Post procedure rhythm: sinus rhythm 13:13:24 Estimated blood loss: 0 ml 13:13:26 Post procedure instruction explained to patient.Patient verbalizes understanding. 13:13:30 Patient needs reinforcement of post procedure teaching. 13:13:31 Procedure and supply charges have been captured, reviewed, submitted and are correct. 13:13:37 Procedure Complication : No complications 13:13:45 Vital chart was stopped 13:13:48 See physician's report for complete and final results. 13:13:50 Report given to Pre/Post Procedure Room. 13:13:53 Patient transfered to Pre/Post Procedure Room with Stretcher. 13:17:51 Procedure ended. 13:17:51 Full Disclosure recording stopped 13:19:09 End room use (Document Last) Signature Audit [place] Stage Time Signature Unsigned Intra-Procedure 12/04/2017 Denise Misbah 1:22:55 PM RT(R) Signatures Monitor : Rosa Scherer Signature : RT Date : Time : [place] [id number] [facility] [address]
[~2017-12-04 09:56] MED LIST changes: +DYAZIDE 37.5/251 CAP PO
[2017-12-04] MEDS ORDERED: PRAVACHOL40 MG PO (10:26)
[2017-12-04] MEDS ORDERED: COZAAR50 MG PO (10:26)
[2017-12-04 10:37] VITALS: BP 160/102; Ht 177.8 cm; Wt 120.5 kg
[2017-12-04 10:51] LABS: BASOPHILS 0.4 % (0-2); HEMATOCRIT 44.5 % (42.0-54.0); HEMOGLOBIN 15.1 g/dL (13.5-17.5); IMMATURE GRANULOCYTES 0.3 % (0-5); LYMPHOCYTES 26.8 % (15-50); MCH 28.2 pg (26.0-34.0); MCHC 33.9 g/dL (31.0-37.0); MEAN PLATELET VOLUME 10.4 fL (7.4-10.4); MONOCYTES 7.7 % (2-11); NEUTROPHILS 56.8 % (40-80); PLATELET COUNT 242 10x3/uL (130-400); RBC 5.36 10x6/uL (4.20-6.10); RDW 12.6 % (11.5-14.5); WBC 7.9 10x3/uL (4.8-10.8)
[2017-12-04 11:11] LABS: CALC OSMOLALITY 284 mosm/kg (275-300); CALCIUM 8.8 mg/dL (8.5-10.1); CARBON DIOXIDE 26.7 mmol/L (21.0-32.0); CHLORIDE - SERUM 106 mmol/L (98-107); CREATININE - SERUM 0.8 mg/dL (0.6-1.3); GLUCOSE 102 mg/dL (74-106); POTASSIUM - SERUM 4.4 mmol/L (3.5-5.1); SODIUM 142 mmol/L (136-145); UREA NITROGEN 17 mg/dL (7-18); eGFR NON AFRICAN AMERICAN > 90 mL/min (90-120)
[2017-12-04 11:39] LABS: INR 1.42 (0.85-1.17); PROTIME 16.6 SECONDS (11.6-15.0)
== END 2017-12-04 14:45 | disposition home or self-care (01) ==
LOC: D.CATH 09:56
PROVIDERS: Internal Medicine Interventional Cardiology
DX: I48.91 Unspecified atrial fibrillation (principal)